=== PATIENT | male | born 1955 | race Caucasian/White ===

== ENCOUNTER 2017-01-14 13:01 | Inpatient (IN) | payer MEDICAID | END 2017-01-20 18:58 | disposition home or self-care (01) | DRG 603 | LOC: D.ER 13:01 → D.MS 18:22 | PROVIDERS: ADMIT Emergency Medicine | DX: L03.116 Cellulitis of left lower limb (principal); Z68.41 Body mass index [BMI] 40.0-44.9, adult; L03.115 Cellulitis of right lower limb; I73.9 Peripheral vascular disease, unspecified; I10 Essential (primary) hypertension; E03.9 Hypothyroidism, unspecified; F10.20 Alcohol dependence, uncomplicated; E66.9 Obesity, unspecified; I48.91 Unspecified atrial fibrillation; Z87.891 Personal history of nicotine dependence ==